=== PATIENT | female | born 1950 | race African-American/Black ===

== ENCOUNTER → 2017-06-04 | Outpatient (CLI) | payer MEDICARE, MEDICAID | END | disposition home or self-care (01) | LOC: MAMMO 13:30 | PROVIDERS: ATTEND Internal Medicine | DX: Z12.31 Encounter for screening mammogram for malignant neoplasm of breast (principal) | CPT/HCPCS: G0202 ==

== ENCOUNTER 2019-09-21 13:34 | Emergency (ER) | payer MEDICARE, MEDICAID ==
[~2019-09-21] VITALS: Ht 165.1 cm; Wt 49.4 kg
[2019-09-21] MEDS ORDERED: SODIUM CHLORIDE 0.9% 1,000 ML IV ONE (17:28)
[2019-09-21] MEDS ORDERED: MORPHINE SULFATE 4 MG/ML CPJ (NOT FOR IM USE) IV STA (17:28)
[2019-09-21] MEDS ORDERED: FAMOTIDINE 20MG/2ML VIAL IV STA (17:28)
[2019-09-21] MEDS ORDERED: MAGNESIUM/ALUMINUM HYDROXIDE/SIMETHICONE 30ML UDC PO STA (17:28)
[2019-09-21 18:42] LABS: BASOPHILS % 0.9 % (0.0-2.0); HEMATOCRIT. 42.2 % (36.0-48.0); HEMOGLOBIN. 14.7 g/dL (12.0-16.0); MEAN CORPUSCULAR VOLUME 83.4 fL (81.0-99.0); MONOCYTES % 7.3 % (2.0-8.0); NEUTROPHILS % 66.8 % (40.0-76.0); PLATELET 300 x1000/uL (130-400); RED BLOOD CELL COUNT 5.06 mill/uL (4.2-5.4); RED CELL DISTRIBUTION WIDTH 15.7 % (11.6-14.6)
[2019-09-21 18:43] LABS: CHLORIDE 104 mEq/L (98-107)
[2019-09-21 18:44] LABS: PROTHROMBIN TIME 10.3 sec (9.6-11.0)
[2019-09-21 18:48] LABS: CLARITY URINE CLEAR (CLEAR); COLOR URINE YELLOW (YELLOW); KETONES URINE NEGATIVE (NEGATIVE); LEUKOCYTE ESTERASE URINE NEGATIVE (NEGATIVE); NITRITE URINE NEGATIVE (NEGATIVE); OCCULT BLOOD URINE NEGATIVE (NEGATIVE); PROTEIN URINE NEGATIVE (NEGATIVE); SPECIFIC GRAVITY URINE 1.011 (1.005-1.030); UROBILINOGEN URINE 0.2 E.U./dL (0.2-1.0)
[2019-09-21 19:11] VITALS: BP 160/92
[2019-10-01] MEDS ORDERED: CALC-3 MT (19:40)
[2019-10-01] MEDS ORDERED: LORA10TA7 PO (19:40)
[2019-10-01] MEDS ORDERED: CHOL100053 PO (19:40)
[2019-10-01] MEDS ORDERED: MULT-1195 MT (19:45)
[2019-10-01] MEDS ORDERED: TC025C15 TP (19:45)
[2019-10-01] MEDS ORDERED: SIMV-43 PO (19:45)
[2019-10-01] MEDS ORDERED: ALBU18HF2 IH (19:45)
[2019-10-01] MEDS ORDERED: MECL-159 MT (19:45)
== END 2019-09-21 19:13 | disposition home or self-care (01) ==
LOC: ER 13:34
DX: K76.9 Liver disease, unspecified (principal); F17.210 Nicotine dependence, cigarettes, uncomplicated; Z71.6 Tobacco abuse counseling; I69.351 Hemiplegia and hemiparesis following cerebral infarction affecting right dominant side
CPT/HCPCS: 36415; 71045; 74176; 80053; 81003; 83690; 85025; 85610; 93005; 96374; 96375; 99284; 99406; J2270; J3490; J7030

== ENCOUNTER → 2019-09-25 | Outpatient (CLI) | payer MEDICARE, MEDICAID ==
[~2019-09-25] MED LIST: ALBU18HF2 IH; BARIUM SULFATE 450ML ORAL SUSP ONE; CALC-3 MT; CHOL100053 PO; IOHEXOL-300 100 ML BOTTLE ONE; LORA10TA7 PO; MECL-159 MT; MULT-1195 MT; SIMV-43 PO; TC025C15 TP
== END | disposition home or self-care (01) ==
LOC: CT 10:50
PROVIDERS: ATTEND Internal Medicine Gastroenterology
DX: K76.9 Liver disease, unspecified (principal)
CPT/HCPCS: 74177; Q9967

== ENCOUNTER 2019-10-11 12:34 | Emergency (ER) | payer MEDICARE, MEDICAID ==
[~2019-10-11] VITALS: Ht 165.1 cm; Wt 50.0 kg
[~2019-10-11 12:34] MED LIST changes: -BARIUM SULFATE 450ML ORAL SUSP ONE; -IOHEXOL-300 100 ML BOTTLE ONE
[2019-10-11 15:02] VITALS: BP 140/60
== END 2019-10-11 15:03 | disposition home or self-care (01) ==
LOC: ER 12:34
DX: R10.9 Unspecified abdominal pain (principal); C25.9 Malignant neoplasm of pancreas, unspecified; Z88.0 Allergy status to penicillin; Z88.6 Allergy status to analgesic agent; Z91.013 Allergy to seafood
CPT/HCPCS: 99282; 99283

== ENCOUNTER 2019-12-31 08:11 | Emergency (ER) | payer MEDICARE, MEDICAID ==
[~2019-12-31] VITALS: Ht 165.1 cm; Wt 49.0 kg
[2019-12-31] MEDS ORDERED: MORPHINE SULFATE 4 MG/ML CPJ (NOT FOR IM USE) IV ONE ×2 (08:45→10:30)
[2019-12-31 09:17] LABS: BASOPHILS % 0.6 % (0.0-2.0); EOSINOPHILS % 0.6 % (0.0-5.0); HEMATOCRIT. 36.4 % (36.0-48.0); HEMOGLOBIN. 12.7 g/dL (12.0-16.0); LYMPHOCYTES % 7.7 % (20.0-50.0); MEAN CORPUSCULAR HEMOGLOBIN 28.8 pg (28.0-32.0); MEAN CORPUSCULAR VOLUME 82.7 fL (81.0-99.0); MEAN PLATELET VOLUME 7.5 fl (7.4-10.4); MONOCYTES % 8.6 % (2.0-8.0); NEUTROPHILS % 82.5 % (40.0-76.0); PLATELET 332 x1000/uL (130-400); RED CELL DISTRIBUTION WIDTH 15.4 % (11.6-14.6)
[2019-12-31 09:23] LABS: CHLORIDE 99 mEq/L (98-107)
[2019-12-31 09:24] LABS: PROTHROMBIN TIME 11.1 sec (9.6-11.0)
[2019-12-31 09:47] LABS: CLARITY URINE CLEAR (CLEAR); COLOR URINE YELLOW (YELLOW); KETONES URINE NEGATIVE (NEGATIVE); LEUKOCYTE ESTERASE URINE 1+ (NEGATIVE); NITRITE URINE NEGATIVE (NEGATIVE); OCCULT BLOOD URINE NEGATIVE (NEGATIVE); PROTEIN URINE TRACE (NEGATIVE); SPECIFIC GRAVITY URINE 1.016 (1.005-1.030); UROBILINOGEN URINE 0.2 E.U./dL (0.2-1.0)
[2019-12-31 12:59] VITALS: BP 128/68
[2019-12-31] MEDS ORDERED: IOHEXOL-300 100 ML BOTTLE ONE (14:07)
== END 2019-12-31 13:01 | disposition home or self-care (01) ==
LOC: ER 08:11
DX: R10.84 Generalized abdominal pain (principal); Z85.9 Personal history of malignant neoplasm, unspecified; Z79.899 Other long term (current) drug therapy; Z88.0 Allergy status to penicillin; Z88.6 Allergy status to analgesic agent
CPT/HCPCS: 36415; 74177; 80053; 81003; 83690; 85025; 85610; 93005; 96374; 96376; 99285; J2270; Q9967

== ENCOUNTER 2020-01-10 15:39 | Inpatient (IN) | payer MEDICARE, MEDICAID ==
[~2020-01-10] VITALS: Ht 162.6 cm; Wt 48.5 kg
[2020-01-10] MEDS ORDERED: MORPHINE SULFATE 4 MG/ML CPJ (NOT FOR IM USE) IV STA (16:56)
[2020-01-10] MEDS ORDERED: SODIUM CHLORIDE 0.9% 1,000 ML IV ONE (16:56)
[2020-01-10] MEDS ORDERED: ONDANSETRON HCL 4MG/2ML INJ IV STA (16:56)
[2020-01-10 17:27] LABS: BASOPHILS % 0.3 % (0.0-2.0); EOSINOPHILS % 1.6 % (0.0-5.0); HEMOGLOBIN. 14.2 g/dL (12.0-16.0); LYMPHOCYTES % 13.2 % (20.0-50.0); MEAN CORPUSCULAR HEMOGLOBIN 28.8 pg (28.0-32.0); MEAN CORPUSCULAR VOLUME 83.2 fL (81.0-99.0); MEAN PLATELET VOLUME 7.5 fl (7.4-10.4); MONOCYTES % 7.5 % (2.0-8.0); NEUTROPHILS % 77.4 % (40.0-76.0); PLATELET 364 x1000/uL (130-400); RED BLOOD CELL COUNT 4.93 mill/uL (4.2-5.4)
[2020-01-10 17:29] LABS: CLARITY URINE CLEAR (CLEAR); COLOR URINE YELLOW (YELLOW); KETONES URINE NEGATIVE (NEGATIVE); LEUKOCYTE ESTERASE URINE TRACE (NEGATIVE); NITRITE URINE NEGATIVE (NEGATIVE); OCCULT BLOOD URINE NEGATIVE (NEGATIVE); PROTEIN URINE NEGATIVE (NEGATIVE); SPECIFIC GRAVITY URINE 1.015 (1.005-1.030); UROBILINOGEN URINE 0.2 E.U./dL (0.2-1.0)
[2020-01-10 17:33] LABS: INR 1.1; PARTIAL THROMBOPLASTIN TIME 28.1 sec (23.4-31.0); PROTHROMBIN TIME 11.8 sec (9.6-11.0)
[2020-01-10 17:34] LABS: CHLORIDE 93 mEq/L (98-107)
[2020-01-10] MEDS ORDERED: MORPHINE SULFATE 4 MG/ML CPJ (NOT FOR IM USE) IV ONE (18:30)
[2020-01-10 22:00] VITALS: BP 141/68
[2020-01-10] MEDS ORDERED: HYDROCODONE/ACETAMINOPHEN 10/325MG TABLET PO PRN (23:00)
[2020-01-10] MEDS: MORPHINE SULFATE 2 MG/ML CPJ (NOT FOR IM USE) IV PRN (23:54)
[2020-01-11] VITALS: BP 141/68
[2020-01-11] MEDS ORDERED: HYDR-4086 PO (01:24)
[2020-01-11] MEDS ORDERED: FLUO20CA33 PO (01:24)
[2020-01-11] MEDS ORDERED: OXYC-89 PO (03:16)
[2020-01-11 04:00] VITALS: BP 133/74
[2020-01-11] MEDS: MORPHINE SULFATE 2 MG/ML CPJ (NOT FOR IM USE) IV PRN (04:07)
[2020-01-11] MEDS: PANTOPRAZOLE 40MG DR TABLET PO SCH (06:11)
[2020-01-11 07:23] LABS: BASOPHILS % 0.3 % (0.0-2.0); EOSINOPHILS % 0.8 % (0.0-5.0); HEMATOCRIT. 39.5 % (36.0-48.0); HEMOGLOBIN. 13.5 g/dL (12.0-16.0); LYMPHOCYTES % 9.1 % (20.0-50.0); MEAN CORPUSCULAR HEMOGLOBIN 28.4 pg (28.0-32.0); MEAN CORPUSCULAR VOLUME 83.1 fL (81.0-99.0); MEAN PLATELET VOLUME 7.8 fl (7.4-10.4); MONOCYTES % 7.7 % (2.0-8.0); NEUTROPHILS % 82.1 % (40.0-76.0); PLATELET 384 x1000/uL (130-400); RED BLOOD CELL COUNT 4.76 mill/uL (4.2-5.4)
[2020-01-11 07:53] LABS: CHLORIDE 94 mEq/L (98-107)
[2020-01-11 08:00] VITALS: BP 133/66
[2020-01-11] MEDS: OXYCODONE HCL/ACETAMINOPHEN 5/325MG TABLET PO PRN ×2 (08:32→17:48)
[2020-01-11] MEDS: NICOTINE 7MG PATCH TD SCH (08:32)
[2020-01-11] MEDS: FLUOXETINE HCL 20MG CAPSULE PO SCH (08:32)
[2020-01-11] MEDS: ONDANSETRON HCL 4MG/2ML INJ IV PRN (11:03)
[2020-01-11 12:00] VITALS: BP_SYST 102; BP_SYST 105; BP_DIAS 59; BP_DIAS 69
[2020-01-11] MEDS ORDERED: SIMETHICONE 80MG TABLET CHEW PO PRN (12:30)
[2020-01-11] MEDS: SODIUM CHLORIDE 0.9% 1,000 ML IV SCH (14:01)
[2020-01-11 16:00] VITALS: BP 117/70
[2020-01-11] MEDS: DOCUSATE SODIUM 250MG CAPSULE PO SCH (17:45)
[2020-01-11 20:00] VITALS: BP 116/66
[2020-01-11] MEDS: ATORVASTATIN CALCIUM 20MG TABLET PO SCH (21:53)
[2020-01-11] MEDS: MORPHINE SULFATE 15MG TABLET SR PO SCH (21:53)
[2020-01-12] VITALS: BP 133/73
[2020-01-12] MEDS: ONDANSETRON HCL 4MG/2ML INJ IV PRN ×2 (01:33→09:04)
[2020-01-12 04:00] VITALS: BP 130/72
[2020-01-12] MEDS: MORPHINE SULFATE 2 MG/ML CPJ (NOT FOR IM USE) IV PRN ×2 (06:35→22:44)
[2020-01-12 08:00] VITALS: BP 121/73
[2020-01-12] MEDS: FLUOXETINE HCL 20MG CAPSULE PO SCH (09:05)
[2020-01-12] MEDS: DOCUSATE SODIUM 250MG CAPSULE PO SCH ×2 (09:05→17:39)
[2020-01-12] MEDS: PANTOPRAZOLE 40MG DR TABLET PO SCH (09:05)
[2020-01-12] MEDS: NICOTINE 7MG PATCH TD SCH (09:05)
[2020-01-12] MEDS: MORPHINE SULFATE 15MG TABLET SR PO SCH ×2 (09:05→20:50)
[2020-01-12] MEDS: SODIUM CHLORIDE 0.9% 1,000 ML IV SCH (09:06)
[2020-01-12 12:00] VITALS: BP 107/72
[2020-01-12] MEDS: METOCLOPRAMIDE HCL 10MG/2ML VIAL IV SCH ×2 (12:15→17:41)
[2020-01-12] MEDS: OXYCODONE HCL/ACETAMINOPHEN 5/325MG TABLET PO PRN (14:51)
[2020-01-12 16:00] VITALS: BP 115/72
[2020-01-12 20:00] VITALS: BP 104/70
[2020-01-12] MEDS: ATORVASTATIN CALCIUM 20MG TABLET PO SCH (20:51)
[2020-01-13] VITALS: BP 127/67
[2020-01-13] MEDS: METOCLOPRAMIDE HCL 10MG/2ML VIAL IV SCH ×2 (01:25→13:51)
[2020-01-13] MEDS: OXYCODONE HCL/ACETAMINOPHEN 5/325MG TABLET PO PRN (01:26)
[2020-01-13 04:00] VITALS: BP 117/67
[2020-01-13 08:00] VITALS: BP 126/72
[2020-01-13] MEDS: DOCUSATE SODIUM 250MG CAPSULE PO SCH ×2 (09:13→16:11)
[2020-01-13] MEDS: FLUOXETINE HCL 20MG CAPSULE PO SCH (09:13)
[2020-01-13] MEDS: MORPHINE SULFATE 15MG TABLET SR PO SCH (09:14)
[2020-01-13] MEDS: PANTOPRAZOLE 40MG DR TABLET PO SCH (09:14)
[2020-01-13 12:00] VITALS: BP 115/68
[2020-01-13] MEDS: MORPHINE SULFATE 2 MG/ML CPJ (NOT FOR IM USE) IV PRN (12:34)
[2020-01-13] MEDS ORDERED: OXYCODONE HCL/ACETAMINOPHEN 5/325MG TABLET PO PRN (14:30)
[2020-01-13] MEDS ORDERED: SIMETHICONE 80MG TABLET CHEW PO SCH (15:00)
[2020-01-13] MEDS: NICOTINE 7MG PATCH TD SCH (15:58)
[2020-01-13 16:00] VITALS: BP 121/70
[2020-01-13 17:28] VITALS: BP 121/70
[2020-01-13] MEDS ORDERED: MORPHINE SULFATE 15MG TABLET SR PO SCH (21:00)
== END 2020-01-13 18:30 | disposition hospice, home (50) | DRG 436 ==
LOC: ER 15:39 → 6EST 18:53 → EDBEDREQSVC 19:15 → EDBEDREQ 19:15 → ENRESERV 20:09
PROVIDERS: ADMIT Internal Medicine; ATTEND Internal Medicine
DX: C25.9 Malignant neoplasm of pancreas, unspecified (principal); R18.8 Other ascites; C78.7 Secondary malignant neoplasm of liver and intrahepatic bile duct; E44.1 Mild protein-calorie malnutrition; E87.1 Hypo-osmolality and hyponatremia; N13.30 Unspecified hydronephrosis; I69.351 Hemiplegia and hemiparesis following cerebral infarction affecting right dominant side; Z68.1 Body mass index [BMI] 19.9 or less, adult; R64 Cachexia; K59.00 Constipation, unspecified; R14.1 Gas pain; F17.210 Nicotine dependence, cigarettes, uncomplicated; Z66 Do not resuscitate; E87.8 Other disorders of electrolyte and fluid balance, not elsewhere classified; Z51.5 Encounter for palliative care; D25.9 Leiomyoma of uterus, unspecified; Z60.2 Problems related to living alone; R74.0 Nonspecific elevation of levels of transaminase and lactic acid dehydrogenase [LDH]; Z80.0 Family history of malignant neoplasm of digestive organs; Z90.49 Acquired absence of other specified parts of digestive tract; Z92.3 Personal history of irradiation; Z88.6 Allergy status to analgesic agent; Z88.0 Allergy status to penicillin; Z91.013 Allergy to seafood; Z79.51 Long term (current) use of inhaled steroids; Z79.1 Long term (current) use of non-steroidal anti-inflammatories (NSAID); Z79.899 Other long term (current) drug therapy; Z71.6 Tobacco abuse counseling
CPT/HCPCS: 36415; 71045; 74176; 76705; 80053; 81003; 83880; 84484; 85025; 93005; 96374; 99285; J2270; J2405; J2765; J7030